=== PATIENT | female | born 1975 | race Asian ===

== ENCOUNTER 2018-04-28 10:00 | Inpatient (IN) | payer MEDICAID ==
[~2018-04-28] VITALS: Ht 162.6 cm; Wt 72.6 kg
[2018-04-28 09:56] VITALS: BP 151/81
[2018-04-28] MEDS ORDERED: NKM (10:08)
--- NOTE | 2018-04-28 10:24 | Emergency Room Report ---
History of Present Illness General Chief Complaint: Dyspnea/Respdistress Source: Patient Present Illness HPI Patient presents with complaints of shortness of breath Patient flew back from the [facility] about 3 months ago Yesterday she felt she was more short of breath Could not get comfortable throughout the night and this morning after ambulation felt more short of breath Denies any chest pain with this denies any pleurisy Denies any vomiting or diarrhea denies any fevers or chills Denies any neck pain or photophobia Allergies: Coded Allergies: No Known Allergies (Unverified , 04/28/18) Patient History Past Medical History: see triage record Past Surgical History: none Pertinent Family History: none Last Menstrual Period: one month ago Reviewed Nursing Documentation: PMH: Agreed; PSxH: Agreed Nursing Documentation-PMH Past Medical History: No Stated History Review of Systems All Other Systems: negative except mentioned in HPI Physical Exam Vital Signs Date Time Temp Pulse Resp B/P (MAP) Pulse Ox O2 Delivery O2 Flow Rate FiO2 04/28/18 09:51 208.0 138 96 97.9 04/28/18 09:51 20 138/84 Room Air Sp02 EP Interpretation: reviewed, normal General Appearance: well appearing, no apparent distress Head: normocephalic, atraumatic Eyes: bilateral eye PERRL, bilateral eye EOMI ENT: hearing grossly normal, normal pharynx, TMs + canals normal, uvula midline Neck: other Respiratory: no respiratory distress, no retraction, no accessory muscle use, crackles - Left upper and lower lobe Cardiovascular #1: normal peripheral pulses, no edema, no gallop, no JVD, no murmur, tachycardia Gastrointestinal: normal bowel sounds, non tender, soft, no mass, no organomegaly, non-distended, no guarding, no hernia, no pulsatile mass, no rebound Genitourinary: no CVA tenderness Musculoskeletal: normal inspection Neurologic: oriented x3, responsive, supervisor gate services III-XII nml as tested, motor strength/ tone normal, sensory intact Psychiatric: mood/affect normal Skin: normal color, no rash, warm/dry, palpation normal Lymphatic: normal inspection, no adenopathy Procedures Critical Care Time Critical Care Time 50 minutes for multiple re-evaluations Initial critical presentation and concern for cardiopulmonary arrest, respiratory failure Multiple re-evaluations Not including any procedural time Medical Decision Making Diagnostic Impression: Primary Impression: Dyspnea ER Course Patient is a fairly complex patient with multiple differential to consideration including but not limited to cardiac cardiopulmonary and vascular emergencies In consideration with fairly recent travel Patient's tachycardia, pulmonary embolism is also considered highly CT angiogram of the chest however is negative for pulmonary ambles him Patient continues to saturate well And did receive several breathing treatments which she felt did help somewhat Patient's presentation is fairly complex Significant cardiopulmonary etiology have been entertained along with an echocardiogram that was done emergently Clinically the patient continues to saturate well, hemodynamically remained stable However will require further inpatient care for evaluation of further ideology Labs Test 04/28/18 10:05 04/28/18 11:50 04/28/18 13:00 04/28/18 13:37 White Blood Count 12.4 K/UL (4.8-10.8) Red Blood Count 5.43 M/UL (4.20-5.40) Hemoglobin 15.2 G/DL (12.0-16.0) Hematocrit 46.7 % (37.0-47.0) Mean Corpuscular Volume 86 FL (80-99) Mean Corpuscular Hemoglobin 28.0 PG (27.0-31.0) Mean Corpuscular Hemoglobin Concent 32.5 G/DL (32.0-36.0) Red Cell Distribution Width 11.2 % (11.6-14.8) Platelet Count 358 K/UL (150-450) Mean Platelet Volume 5.3 FL (6.5-10.1) Neutrophils (%) (Auto) 61.1 % (45.0-75.0) Lymphocytes (%) (Auto) 27.0 % (20.0-45.0) Monocytes (%) (Auto) 4.2 % (1.0-10.0) Eosinophils (%) (Auto) 6.7 % (0.0-3.0) Basophils (%) (Auto) 1.0 % (0.0-2.0) Sodium Level 142 MMOL/L (136-145) Potassium Level 3.1 MMOL/L (3.5-5.1) Chloride Level 105 MMOL/L (98-107) Carbon Dioxide Level 26 MMOL/L (21-32) Anion Gap 11 mmol/L (5-15) Blood Urea Nitrogen 12 mg/dL (7-18) Creatinine 0.9 MG/DL (0.55-1.30) Estimat Glomerular Filtration Rate > 60 mL/min (>60) Glucose Level 148 MG/DL (74-106) Lactic Acid Level 4.10 mmol/L (0.4-2.0) 5.00 mmol/L (0.66-2.22) Calcium Level 9.1 MG/DL (8.5-10.1) Total Bilirubin 0.5 MG/DL (0.2-1.0) Aspartate Amino Transf (AST/SGOT) 24 U/L (15-37) Alanine Aminotransferase (ALT/SGPT) 22 U/L (12-78) Alkaline Phosphatase 64 U/L (46-116) Total Creatine Kinase 133 U/L (26-308) Creatine Kinase MB 0.5 NG/ML (0.0-3.6) Creatine Kinase MB Relative Index 0.3 Troponin I 0.000 ng/mL (0.000-0.056) Pro-B-Type Natriuretic Peptide 68 pg/mL (0-125) Total Protein 7.1 G/DL (6.4-8.2) Albumin 3.9 G/DL (3.4-5.0) Globulin 3.2 g/dL Albumin/Globulin Ratio 1.2 (1.0-2.7) Lipase 115 U/L (73-393) Urine Color Pale yellow Urine Appearance Slightly cloudy Urine pH 5 (4.5-8.0) Urine Specific [place] 1.015 (1.005-1.035) Urine Protein Negative (NEGATIVE) Urine Glucose (UA) Negative (NEGATIVE) Urine Ketones Negative (NEGATIVE) Urine Blood 1+ (NEGATIVE) Urine Nitrite Negative (NEGATIVE) Urine Bilirubin Negative (NEGATIVE) Urine Urobilinogen Normal MG/DL (0.0-1.0) Urine Leukocyte Esterase Negative (NEGATIVE) Urine RBC 0-2 /HPF (0 - 2) Urine WBC 0-2 /HPF (0 - 2) Urine Squamous Epithelial Cells Occasional /LPF Urine Bacteria Few /HPF (NONE) Urine HCG, Qualitative Negative (NEGATIVE) Arterial Blood pH 7.350 (7.350-7.450) Arterial Blood Partial Pressure CO2 40.8 mmHg (35.0-45.0) Arterial Blood Partial Pressure O2 80.6 mmHg (75.0-100.0) Arterial Blood HCO3 22.0 mmol/L (22.0-26.0) Arterial Blood Oxygen Saturation 95.1 % (92.0-98.0) Arterial Blood Base Excess -3.3 Jerrod Test Positive Test 04/28/18 21:45 04/28/18 22:26 White Blood Count 16.9 K/UL (4.8-10.8) Red Blood Count 4.81 M/UL (4.20-5.40) Hemoglobin 14.1 G/DL (12.0-16.0) Hematocrit 41.4 % (37.0-47.0) Mean Corpuscular Volume 86 FL (80-99) Mean Corpuscular Hemoglobin 29.3 PG (27.0-31.0) Mean Corpuscular Hemoglobin Concent 34.0 G/DL (32.0-36.0) Red Cell Distribution Width 11.1 % (11.6-14.8) Platelet Count 310 K/UL (150-450) Mean Platelet Volume 6.1 FL (6.5-10.1) Neutrophils (%) (Auto) 96.9 % (45.0-75.0) Lymphocytes (%) (Auto) 2.4 % (20.0-45.0) Monocytes (%) (Auto) 0.3 % (1.0-10.0) Eosinophils (%) (Auto) 0.1 % (0.0-3.0) Basophils (%) (Auto) 0.3 % (0.0-2.0) Sodium Level 140 MMOL/L (136-145) Potassium Level 4.2 MMOL/L (3.5-5.1) Chloride Level 106 MMOL/L (98-107) Carbon Dioxide Level 25 MMOL/L (21-32) Anion Gap 9 mmol/L (5-15) Blood Urea Nitrogen 10 mg/dL (7-18) Creatinine 1.1 MG/DL (0.55-1.30) Estimat Glomerular Filtration Rate 54.8 mL/min (>60) Glucose Level 170 MG/DL (74-106) Lactic Acid Level 4.30 mmol/L (0.4-2.0) Calcium Level 8.6 MG/DL (8.5-10.1) Magnesium Level 1.8 MG/DL (1.8-2.4) Total Bilirubin 0.6 MG/DL (0.2-1.0) Aspartate Amino Transf (AST/SGOT) 17 U/L (15-37) Alanine Aminotransferase (ALT/SGPT) 21 U/L (12-78) Alkaline Phosphatase 57 U/L (46-116) Total Protein 7.4 G/DL (6.4-8.2) Albumin 3.7 G/DL (3.4-5.0) Globulin 3.7 g/dL Albumin/Globulin Ratio 1.0 (1.0-2.7) Arterial Blood pH 7.389 (7.350-7.450) Arterial Blood Partial Pressure CO2 36.4 mmHg (35.0-45.0) Arterial Blood Partial Pressure O2 83.9 mmHg (75.0-100.0) Arterial Blood HCO3 21.5 mmol/L (22.0-26.0) Arterial Blood Oxygen Saturation 95.9 % (92.0-98.0) Arterial Blood Base Excess -2.9 Jerrod Test Positive EKG Diagnostic Results Rate: tachycardiac Rhythm: other ST Segments: other - Tachycardia Rhythm Strip Diag. Results EP Interpretation: yes Rate: 110 Rhythm: no PVC's, no ectopy, other - Sinus tach Chest X-Ray Diagnostic Results Chest X-Ray Diagnostic Results : Chest X-Ray Ordered: Yes # of Views/Limited/Complete: 1 View Indication: Chest Pain EP Interpretation: Yes Interpretation: no consolidation, no effusion, no pneumothorax Impression: No acute disease Electronically Signed by: Bill Ritchie DO CT/MRI/US Diagnostic Results CT/MRI/US Diagnostic Results : Impression CT chestComparison: There is good quality opacification of the pulmonary arteries. No intraluminal filling defects or other findings to suggest acute pulmonary embolus are demonstrated. Normal caliber pulmonary arteries. No evidence of right ventricular dilatation. No evidence of thoracic aortic aneurysm or dissection or blastic branching anatomy and normal caliber of the great neck vessels noted. The lungs are clear. No infiltrates, effusions, nodules, or masses demonstrated. The included portions of the thyroid appear unremarkable. No evidence of mediastinal or hilar lymphadenopathy. Normal size heart. No evidence of pericardial effusion. No axillary or chest wall mass or adenopathy. The included upper abdominal viscera are unremarkable. The bones are unremarkable. Findings: Negative echocardiogram: no acute disease Last Vital Signs Date Time Temp Pulse Resp B/P (MAP) Pulse Ox O2 Delivery O2 Flow Rate FiO2 04/28/18 09:56 97.0 133 20 151/81 98 Room Air 97.0 Status: improved Disposition: ADMITTED INPATIENT Condition: Serious Bill Ritchie DO Apr 28, 2018 10:24
[2018-04-28] MEDS ORDERED: Isovue-370 150ml vial INJ PRN (10:30)
[2018-04-28 10:55] LABS: EOSINOPHILS % (AUTO) 6.7 % (0.0-3.0); HEMATOCRIT 46.7 % (37.0-47.0); HEMOGLOBIN 15.2 G/DL (12.0-16.0); MEAN CORPUSCULAR VOLUME 86 FL (80-99); MONOCYTES % (AUTO) 4.2 % (1.0-10.0); NEUTROPHILS % (AUTO) 61.1 % (45.0-75.0); PLATELET COUNT 358 K/UL (150-450); RED BLOOD COUNT 5.43 M/UL (4.20-5.40); RED CELL DISTRIBUTION WIDTH 11.2 % (11.6-14.8); WHITE BLOOD COUNT 12.4 K/UL (4.8-10.8)
[2018-04-28 11:00] VITALS: BP 121/69
[2018-04-28 11:22] LABS: ANION GAP 11 mmol/L (5-15); BLOOD UREA NITROGEN 12 mg/dL (7-18); CALCIUM 9.1 MG/DL (8.5-10.1); CARBON DIOXIDE 26 MMOL/L (21-32); CHLORIDE 105 MMOL/L (98-107); CREATININE 0.9 MG/DL (0.55-1.30); POTASSIUM 3.1 MMOL/L (3.5-5.1); SODIUM 142 MMOL/L (136-145)
[2018-04-28 11:40] LABS: ALANINE AMINOTRANSFERASE 22 U/L (12-78); ALBUMIN 3.9 G/DL (3.4-5.0); ALBUMIN/GLOBULIN RATIO 1.2 (1.0-2.7); ALKALINE PHOSPHATASE 64 U/L (46-116); ASPARTATE AMINO TRANSFERASE 24 U/L (15-37); BILIRUBIN,TOTAL 0.5 MG/DL (0.2-1.0); CKMB 0.5 NG/ML (0.0-3.6); CREATINE KINASE 133 U/L (26-308)
[2018-04-28 12:12] LABS: BILIRUBIN, URINE NEGATIVE (NEGATIVE); COLOR,URINE PALE YELLOW; GLUCOSE, URINE (UA) NEGATIVE (NEGATIVE); KETONES,URINE NEGATIVE (NEGATIVE); LEUKOCYTE ESTERASE ,URINE NEGATIVE (NEGATIVE); NITRITE,URINE NEGATIVE (NEGATIVE); PH,URINE 5 (4.5-8.0); PROTEIN,URINE NEGATIVE (NEGATIVE); UROBILINOGEN,URINE NORMAL MG/DL (0.0-1.0)
[2018-04-28 12:15] LABS: APPEARANCE,URINE SLIGHTLY CLOUDY
[2018-04-28 13:00] VITALS: BP 120/64
[2018-04-28] MEDS ORDERED: Levalbuterol Inh UD 1.25mg/0.5ml HHN ONE ×2 (13:00→13:45)
[2018-04-28] MEDS ORDERED: LORazepam Inj 2mg/ml 1ml IV ONE (13:30)
[2018-04-28] MEDS ORDERED: Ketorolac 30mg Inj IV ONE (13:30)
--- NOTE | 2018-04-28 14:06 | Diagnostic Imaging Report ---
ndication: Shortness of breath Technique: IV administration nonionic contrast. Spiral acquisitions obtained from the lung bases to the lung apices. Multiplanar and 3-D reconstructions were generated. Total dose length product 1152.58 mGycm. CTDIvol(s) 28.28 mGy. Dose reduction achieved using automated exposure control Comparison: There is good quality opacification of the pulmonary arteries. No intraluminal filling defects or other findings to suggest acute pulmonary embolus are demonstrated. Normal caliber pulmonary arteries. No evidence of right ventricular dilatation. No evidence of thoracic aortic aneurysm or dissection or blastic branching anatomy and normal caliber of the great neck vessels noted. The lungs are clear. No infiltrates, effusions, nodules, or masses demonstrated. The included portions of the thyroid appear unremarkable. No evidence of mediastinal or hilar lymphadenopathy. Normal size heart. No evidence of pericardial effusion. No axillary or chest wall mass or adenopathy. The included upper abdominal viscera are unremarkable. The bones are unremarkable. Findings: Negative Findings previously discussed by phone with Dr. Ritchie at approximately 1315 Impression: The CT scanner at [facility] is accredited by the [employer] and the scans are performed using protocols designed to limit radiation exposure to as low as reasonably achievable to attain images of sufficient resolution adequate for diagnostic evaluation.
--- NOTE | 2018-04-28 14:47 | Diagnostic Imaging Report ---
Indication: Shortness of breath Technique: One view of the chest Comparison: none Findings: Lungs and pleural spaces are clear. Heart size is normal Impression: No acute process
[2018-04-28] MEDS ORDERED: SUMATRIPTAN SUC25 MG PO (16:43)
[2018-04-28] MEDS ORDERED: Albuterol/Ipratropium 3ml neb ONE (17:11)
[2018-04-28] MEDS ORDERED: Solu-MEDROL 125mg Inj IVP SCH (17:15)
[2018-04-28] MEDS ORDERED: Solu-MEDROL 125mg Inj IVP ONE (17:15)
[2018-04-28] MEDS ORDERED: Albuterol/Ipratropium 3ml neb HHN PRN (17:45)
[2018-04-28] MEDS: Montelukast 10mg tablet ORAL SCH (18:21)
[2018-04-28] MEDS: 1/2NS w/KCl 20mEq 1000ml 1,000 ML IV SCH (18:50)
[2018-04-28] MEDS: Azithromycin 500 MG in D5W 275 ML IV SCH (18:50)
[2018-04-28] MEDS: Albuterol/Ipratropium 3ml neb HHN SCH ×2 (19:51→23:48)
[2018-04-28 20:00] VITALS: BP 125/83
[2018-04-28 21:59] LABS: BASOPHILS % (AUTO) 0.3 % (0.0-2.0); EOSINOPHILS % (AUTO) 0.1 % (0.0-3.0); HEMATOCRIT 41.4 % (37.0-47.0); HEMOGLOBIN 14.1 G/DL (12.0-16.0); LYMPHOCYTES % (AUTO) 2.4 % (20.0-45.0); MEAN CORPUSCULAR VOLUME 86 FL (80-99); MONOCYTES % (AUTO) 0.3 % (1.0-10.0); NEUTROPHILS % (AUTO) 96.9 % (45.0-75.0); PLATELET COUNT 310 K/UL (150-450); RED BLOOD COUNT 4.81 M/UL (4.20-5.40); RED CELL DISTRIBUTION WIDTH 11.1 % (11.6-14.8); WHITE BLOOD COUNT 16.9 K/UL (4.8-10.8)
[2018-04-28] MEDS: Solu-MEDROL 125mg Inj IVP SCH (22:01)
[2018-04-28] MEDS: Enoxaparin 80mg Inj SUBQ SCH (22:03)
[2018-04-28 22:14] LABS: ALANINE AMINOTRANSFERASE 21 U/L (12-78); ALBUMIN 3.7 G/DL (3.4-5.0); ALKALINE PHOSPHATASE 57 U/L (46-116); ANION GAP 9 mmol/L (5-15); ASPARTATE AMINO TRANSFERASE 17 U/L (15-37); BILIRUBIN,TOTAL 0.6 MG/DL (0.2-1.0); BLOOD UREA NITROGEN 10 mg/dL (7-18); CALCIUM 8.6 MG/DL (8.5-10.1); CARBON DIOXIDE 25 MMOL/L (21-32); CHLORIDE 106 MMOL/L (98-107); CREATININE 1.1 MG/DL (0.55-1.30); POTASSIUM 4.2 MMOL/L (3.5-5.1); SODIUM 140 MMOL/L (136-145)
--- NOTE | 2018-04-28 23:45 | History and Physical Report ---
DATE OF ADMISSION: 04/28/2018 REASON FOR ADMISSION: Shortness of breath. HISTORY OF PRESENT ILLNESS: This 43-year-old female presented to the emergency room with shortness of breath, it started last night. She noted some congestion, dry cough, and wheezing all night making it difficult for her to sleep. She got worse this morning, could not lie flat and could not catch her breath. She denied chest pain. She denied any leg swelling. She denies any recent exposures or change in medications. The patient notes that she has a history of urticaria several years ago that required almost a year long treatment with steroids that has since resolved. She denies any known history of asthma. PAST MEDICAL HISTORY: Otherwise unremarkable. MEDICATIONS: None. ALLERGIES: None. FAMILY HISTORY: Noncontributory. REVIEW OF SYSTEMS: Unremarkable. PHYSICAL EXAMINATION: VITAL SIGNS: Afebrile, blood pressure 138/84, pulse 138, respirations 20, and oxygen saturation on room air is 96%. NECK: Supple. LUNGS: Accessory muscle use noted. Subcostal retractions. Poor air breath sounds. Diffuse expiratory wheezing. HEART: Regular rhythm. Rapid rate. Normal S1, S2. ABDOMEN: Soft. No edema. No CVA tenderness. LABORATORY DATA: ABG, 7.35, 41, 81. Lactic acid 4.1, repeated 5. Chemistry panel, notable for potassium 3.1. Troponin negative. White count 12.4, hemoglobin 15.2. IMPRESSION: 1. Acute bronchospasm. 2. Acute respiratory insufficiency. 3. Hypokalemia. 4. History of urticaria. 5. Impending respiratory failure. 6. Lactic acidosis. PLAN: 1. Inhaled bronchodilators. 2. Intravenous steroids. 3. Empiric antimicrobials. 4. Viral nasal swabs. 5. Potassium replacement. 6. Check magnesium. 7. Intravenous fluid hydration. 8. Serial lactic acid levels. Donte Oropeza M.D. DR: DILLAN JOB#: [id number] CC:
[2018-04-29] VITALS: BP 125/79
[2018-04-29] MEDS: 1/2NS w/KCl 20mEq 1000ml 1,000 ML IV SCH ×2 (02:30→10:40)
[2018-04-29] MEDS: Albuterol/Ipratropium 3ml neb HHN SCH ×6 (03:35→23:13)
[2018-04-29 04:00] VITALS: BP 105/74
[2018-04-29] MEDS: Solu-MEDROL 125mg Inj IVP SCH ×2 (05:44→14:36)
[2018-04-29 07:47] LABS: ALANINE AMINOTRANSFERASE 18 U/L (12-78); ALBUMIN 3.4 G/DL (3.4-5.0); ALKALINE PHOSPHATASE 52 U/L (46-116); ANION GAP 5 mmol/L (5-15); ASPARTATE AMINO TRANSFERASE 17 U/L (15-37); BILIRUBIN,TOTAL 0.6 MG/DL (0.2-1.0); BLOOD UREA NITROGEN 10 mg/dL (7-18); CALCIUM 8.1 MG/DL (8.5-10.1); CARBON DIOXIDE 27 MMOL/L (21-32); CHLORIDE 106 MMOL/L (98-107); CREATININE 0.7 MG/DL (0.55-1.30); POTASSIUM 3.9 MMOL/L (3.5-5.1); SODIUM 138 MMOL/L (136-145)
[2018-04-29 07:48] LABS: HEMATOCRIT 40.6 % (37.0-47.0); HEMOGLOBIN 13.9 G/DL (12.0-16.0); MEAN CORPUSCULAR VOLUME 85 FL (80-99); PLATELET COUNT 340 K/UL (150-450); RED BLOOD COUNT 4.75 M/UL (4.20-5.40); RED CELL DISTRIBUTION WIDTH 11.1 % (11.6-14.8); WHITE BLOOD COUNT 18.5 K/UL (4.8-10.8)
[2018-04-29 08:00] VITALS: BP 138/76
[2018-04-29] MEDS: Enoxaparin 80mg Inj SUBQ SCH (08:14)
[2018-04-29 12:00] VITALS: BP 147/70
[2018-04-29 16:00] VITALS: BP 153/87
[2018-04-29] MEDS: Montelukast 10mg tablet ORAL SCH (16:29)
[2018-04-29] MEDS: Azithromycin 500 MG in D5W 275 ML IV SCH (17:43)
[2018-04-29 20:00] VITALS: BP 141/87
--- NOTE | 2018-04-29 20:00 | Progress Note ---
DATE: 04/29/2018 INTERNAL MEDICINE PROGRESS NOTE SUBJECTIVE: The patient is less short of breath today. She has been on around the clock inhaled bronchodilators and high-dose intravenous steroids. She has less wheezing. OBJECTIVE: VITAL SIGNS: Blood pressure 153/87, pulse 121, and respirations 18. LUNGS: With diminished breath sounds. Few expiratory wheezes. CARDIAC: Regular rhythm. Rapid rate. Normal S1, S2. ABDOMEN: Soft. EXTREMITIES: No edema. LABORATORY DATA: White count 18, hemoglobin 13. BUN 10, creatinine 0.7. Lactic acid 9 normal. IMPRESSION: 1. Asthma exacerbation. 2. Acute bronchospasm. 3. Leukocytosis post steroids. 4. Lactic acidosis, resolved. 5. Hyperglycemia due to steroids and possibly underlying diabetic condition. 6. Obesity. 7. Elevated blood pressure, on steroids. PLAN: 1. Steroid taper. 2. Bronchodilators as needed. 3. Check a hemoglobin A1c. 4. Consider antihypertensive medications should blood pressure range remains elevated. Donte Oropeza M.D. DR: DILLAN JOB#: [id number] CC:
[2018-04-29] MEDS: Solu-MEDROL 40mg Inj IVP SCH (21:18)
[2018-04-30] VITALS: BP 136/88
[2018-04-30] MEDS: Albuterol/Ipratropium 3ml neb HHN SCH ×4 (03:19→15:31)
[2018-04-30 04:00] VITALS: BP 153/86
[2018-04-30 08:00] VITALS: BP 124/89
[2018-04-30] MEDS: Solu-MEDROL 40mg Inj IVP SCH (08:31)
[2018-04-30 12:00] VITALS: BP 138/75
[2018-04-30] MEDS ORDERED: Solu-MEDROL 40mg Inj IVP SCH (15:18)
[2018-04-30 16:00] VITALS: BP 139/91
[2018-04-30] MEDS: Montelukast 10mg tablet ORAL SCH (16:03)
--- NOTE | 2018-04-30 16:10 | Cardiology Report ---
APPROVED REPORT EKG Measurement Heart [id number] Sinus tachycardia Cannot rule out Anterior infarct, age undetermined Abnormal ECG
--- NOTE | 2018-05-01 11:12 | Cardiology Report ---
APPROVED REPORT EXAM: Two-dimensional and M-mode echocardiogram with Doppler and color Doppler. INDICATION SOB M-Mode DIMENSIONS IVSd1.1 (0.7-1.1cm)Left Atrium (MM)3.0 (1.6-4.0cm) LVDd3.9 (3.5-5.6cm)Aortic Root3.4 (2.0-3.7cm) PWd1.2 (0.7-1.1cm)Aortic Cusp Exc.2.2 (1.5-2.0cm) LVDs2.6 (2.5-4.0cm) PWs1.6 cm Normal left ventricular chamber size, systolic function and wall motion. Left ventricular ejection fraction estimated to be 60-65 %. No evidence of left ventricular hypertrophy. No evidence of pericardial effusion. All other cardiac chamber sizes are within normal limits. Mild focal aortic valve sclerosis with adequate cusp excursion. Mildly thickened mitral valve leaflets with normal excursion. Mild mitral annulus and aortic root calcification. Normal pulmonic valve structure. Normal tricuspid valve structure. IVC at normal size with physiologic collapse. A color flow and spectral Doppler study was performed and revealed: Trace aortic regurgitation. Trace mitral regurgitation. Mitral diastolic velocities suggest reduced left ventricular relaxation c/w mild LV diastolic dysfunction (Grade I). Trace tricuspid regurgitation. Tricuspid systolic velocities suggests peak right ventricular systolic pressure of 16 mmHg.
--- NOTE | 2018-05-02 09:51 | Discharge Summary ---
Discharge Summary Discharge Summary _ DATE OF ADMISSION: 04/28/2018 DATE OF DISCHARGE: 04/30/2018 REASON FOR ADMISSION: 43 years old female presented to emergency department with shortness of breath since last night. She reported dry cough, wheezing ,congestion, not able to sleep. Symptoms got worse in the morning. Patient was unable to lie flat and would not catch her breath . Patient denied chest pain. She denied leg swelling. Patient had a history of urticaria several years ago, which required almost the year-long treatment with the steroids (eventually resolved). Patient denied known history of asthma. Upon evaluation vital signs revealed tachycardia 138. EKG revealed sinus tachycardia, no acute ischemic changes. Laboratory work up revealed leukocytosis WBC 12.4. Lactic acid 4.1 and repeated 5.0 Potassium 3.1. Troponin negative ProBNP 68. ABG was done on 3 L of oxygen via nasal cannula and was stable. Urinalysis revealed no evidence of UTI, urine test was negative . Chest x-ray revealed no acute cardiopulmonary pathology. CTA of the chest revealed no evidence of pulmonary emboli. The lungs were clear. No infiltrate, effusion nodules or masses demonstrated. Patient admitted with diagnoses of acute bronchospasm ,acute respiratory insufficiency, possibly impending respiratory failure, lactic acidosis, hypokalemia, history of urticaria. HOSPITAL COURSE: Patient admitted to telemetry floor. Patient started on IV fluids and intravenous steroids. Steroids gradually tapered down. Supplemental oxygen provided as needed to keep pulse oximetry above 92% . Patient was able to be weaned from oxygen prior to discharge. Pulmonary toilet with bronchodilators provided around the clock and as needed. Patient started on empiric antibiotics. Blood culture were negative. Lactic acid down to normal. DVT prophylaxis provided. Echocardiogram revealed preserved ejection fraction of 60-65% and right ventricular systolic pressure of 16. No wall motion abnormality noted. Potassium was replaced. Magnesium was stable. Noted elevated blood pressure, likely secondary to steroids. As steroids were tapered, blood pressure normalized. Noted elevated glucose on morning labs-170, 140, probably due to steroids as well. Blood glucose was trending down as steroids were tapered down. Recommended to check hemoglobin A1c as outpatient. Given prior history of urticaria and acute l bronchospasm episode, patient probably had asthma. Patient will need follow-up with her primary care provider for pulmonary function test for further decision regarding management. Patient stabilized and was ready for discharge FINAL DIAGNOSES: Asthma exacerbation Acute bronchospasm Acute respiratory insufficiency -resolved Lactic acidosis -resolved Leukocytosis, reactive secondary to steroids History of urticaria , requiring custodial of steroids Elevated blood pressure- resolved Hyperglycemia likely secondary to steroids DISCHARGE MEDICATIONS: List of medication provided. DISCHARGE INSTRUCTIONS: Patient was discharged home . Follow up with primary care provider in one week. Recommended outpatient workup for asthma and check HgA1c. Patient was counseled on return to ED precautions I have been assigned to dictate discharge summary for this account. I was not involved in the patient's management. Debbie Santos NP May 02, 2018 09:51
== END 2018-04-30 16:47 | disposition home or self-care (01) | DRG 141 ==
LOC: EDBD 10:00 → EMR 10:37 → 2E 10:52 → EDBEDREQ 11:45
DX: J45.901 Unspecified asthma with (acute) exacerbation (principal); E87.2 Acidosis; R06.89 Other abnormalities of breathing; R73.9 Hyperglycemia, unspecified; T38.0X5A Adverse effect of glucocorticoids and synthetic analogues, initial encounter
CPT/HCPCS: 36415; 36600; 71045; 71275; 80053; 81003; 81025; 82550; 82553; 82803; 83605; 83690; 83735; 83880; 84484; 85007; 85025; 86710; 87040; 93005; 93306; 94640; 94760; 96360; 99291; J7620; J8499